=== PATIENT | female | born 1950 | race Caucasian/White ===

== ENCOUNTER 2017-01-27 18:23 | Emergency (ER) | payer BC, MEDICARE, OTHER ==
[~2017-01-27] VITALS: Ht 149.9 cm; Wt 61.9 kg
[~2017-01-27 18:23] MED LIST: LEXA20TA PO; LIPI10TA PO; ZOLP10TA3 PO
[2017-01-27 18:39] VITALS: BP 213/96; PULSE 70; RESP 16; TEMP 98.9; O2SAT 99
[2017-01-27] MEDS ORDERED: AMBI10TA PO (18:47)
[2017-01-27] MEDS ORDERED: LEXA10TA PO (18:47)
[2017-01-27] MEDS ORDERED: LIVA4TAB PO (18:47)
--- NOTE | 2017-01-27 18:54 | PD ---
HPI Chief Complaint: Musculoskeletal Complaint Time Seen by Provider: 18:55 Travel History International Travel<30 days: No Contact w/Intl Traveler<30days: No Traveled to known affect area: No History of Present Illness HPI 66-year-old white female complaining of right shoulder pain and right forearm pain after a mechanical fall 45 minutes ago. She has limited range of motion of her right shoulder and mild pain with rest. She is unable to adduct her arm more than 90 off of the body or perform a shoulder shrug. Her forearm pain is located on her lateral forearm with palpation. She has limited range of motion of her wrists, elbows, and forearms. She denies loss of consciousness, dizziness , chest pain, shortness of breath or any other concerns today. PFSH Past Medical History Anxiety: Yes Depression: Yes Cancer: No Cardiovascular Problems: No Diabetes: No Diminished Hearing: No Endocrine: No Glaucoma: Yes Genitourinary: No Hepatitis: No Hiatal Hernia: No Hypertension: No Immune Disorder: No Musculoskeletal: No Neurologic: No Psychiatric: Yes (DEPRESSION/ ANXIETY) Reproductive: No Respiratory: No Immunizations Current: Yes Thyroid Disease: No Tetanus Vaccination: < 5 Years Influenza Vaccination: No ?: Not Menopausal: Yes Tubal Ligation: Yes Past Surgical History Abdominal Surgery: Yes (APPENDECTOMY) AICD: No Appendectomy: Yes Cardiac Surgery: No Ear Surgery: No Endocrine Surgery: No Eye Surgery: Yes (RETINA REATTACH. RIGHT/ CATARACT EXTR. RIGHT) Genitourinary Surgery: No Gynecologic Surgery: Yes (TUBAL LIGATION; TAHBSO) Hysterectomy: Yes Joint Replacement: No Oral Surgery: No Pacemaker: No Thoracic Surgery: No Other Surgery: Yes Social History Alcohol Use: Yes (WINE FEW TIMES A WEEK) Tobacco Use: No Substance Use: No Allergies-Medications (Allergen,Severity, Reaction): Coded Allergies: No Known Allergies (Verified , 01/27/17) Reported Meds & Prescriptions Reported Meds & Active Scripts Active Reported Ambien (Zolpidem Tartrate) 10 Mg Tab 10 Mg PO HS PRN Lexapro (Escitalopram Oxalate) 10 Mg Tab 10 Mg PO DAILY Livalo (Pitavastatin) 4 Mg Tab 4 Mg PO DAILY Physical Exam Narrative 66-year-old female well-developed well-nourished with . SKIN: Focused skin assessment warm/dry. No ecchymosis or erythema. Skin intact HEAD: Normocephalic. EYES: No scleral icterus. No injection or drainage. NECK: Supple, trachea midline. No JVD or lymphadenopathy. CARDIOVASCULAR: Regular rate and rhythm without murmurs, gallops, or rubs. RESPIRATORY: Breath sounds equal bilaterally. No accessory muscle use. MUSCULOSKELETAL: No cyanosis, or edema. Right shoulder: Active and passive range of motion demonstrates pain in all directions but no crepitus, popping, or change in pain noted. No tenting of the skin, edema or ecchymosis. Mild tenderness to palpation in the lateral superior portion of the deltoid. No joint space tenderness to palpation. Elbow and forearm: mild TTP to lateral forearm without edema, ecchymosis. full range of motion present in forearm to fingers Right forearm and elbow: Active and passive range of motion without pain or limits. Mild tenderness to palpation to lateral aspect of her forearm. No crepitus. BACK: Nontender without obvious deformity. No CVA tenderness. Data Data Last Documented VS Vital Signs Date Time Temp Pulse Resp B/P (MAP) Pulse Ox O2 Delivery O2 Flow Rate FiO2 01/27/17 18:39 98.9 70 16 213/96 (135) 99 Orders Orders Shoulder, Complete (>2vws) (01/27/17 ) Elbow, Complete (4 Vws) (01/27/17 ) [facility] Medical Decision Making Medical Screen Exam Complete: Yes Emergency Medical Condition: Yes Differential Diagnosis Right shoulder: Fracture versus tendon injury versus muscle strain Right forearm: Fracture versus tendon injury versus muscle strain Narrative Course 66-year-old white female complaining of right shoulder and right forearm pain after a mechanical fall today. She states that she has mild shoulder pain with rest that increases with motion. Forearm pain is tender to palpation in lateral aspect. She denies numbness or tingling, or swelling of her arm. Denies clicks, pops, crepitus. PE revealed minimal pain to palpation to lateral forearm, increased pain with range of motion of shoulder. Suspect ligamental injury but pt will follow up outpatient. Shoulder, elbow xray- no gross fractures I advised pt that she could take OTC motrin per package instructions, heat or ice. Diagnosis Primary Impression: Right shoulder injury Qualified Codes: S49.91XA - Unspecified injury of right shoulder and upper arm , initial encounter Additional Impression: Forearm injury Qualified Codes: S59.911A - Unspecified injury of right forearm, initial encounter Patient Instructions: General Instructions, Shoulder Pain (ED) Additional Instructions: Follow-up with her primary care physician and orthopedics doctor for further treatment and evaluation. Recommend using Tylenol and Motrin as directed per package instructions for pain control. Shoulder pain persists or worsens return to the emergency department for further evaluation and treatment. Disposition: 01 DISCHARGE HOME Condition: Stable Rox Ramirez Jan 27, 2017 18:54
--- NOTE | 2017-01-27 19:41 | RADRPT ---
EXAM DATE/TIME: 01/27/2017 18:56 [facility] COMPARISON: No previous studies available for comparison. INDICATIONS : Right shoulder pain. MEDICAL HISTORY : None. SURGICAL HISTORY : None. ENCOUNTER: Initial ACUITY: 1 day PAIN SCORE: 6/10 LOCATION: Right shoulder FINDINGS: Multiple view examination of the right shoulder demonstrates no evidence of fracture or dislocation. The glenohumeral and acromioclavicular joints are maintained. There is normal range of motion betwe en internal and external rotation. Bony mineralization is normal. CONCLUSION: Negative exam. Joseluis Page MD on January 27, 2017 at 19:39 Board Certified Radiologist. This report was verified electronically.
--- NOTE | 2017-01-27 19:46 | RADRPT ---
EXAM DATE/TIME: 01/27/2017 19:06 [facility] COMPARISON: No previous studies available for comparison. INDICATIONS : Right elbow pain. MEDICAL HISTORY : None. SURGICAL HISTORY : None. ENCOUNTER: Initial ACUITY: 1 day PAIN SCORE: 4/10 LOCATION: Right elbow. FINDINGS: Multiple view examination of the right elbow demonstrates no soft tissue swelling, joint effusion, or fracture. The osseous structures are in normal alignment. Bony mineralization is normal. CONCLUSION: Negative exam. Joseluis Page MD on January 27, 2017 at 19:45 Board Certified Radiologist. This report was verified electronically.
== END 2017-01-27 19:59 | disposition home or self-care (01) ==
LOC: PHEFT 18:23
DX: S49.91XA Unspecified injury of right shoulder and upper arm, initial encounter (principal); S59.911A Unspecified injury of right forearm, initial encounter; W01.0XXA Fall on same level from slipping, tripping and stumbling without subsequent striking against object, initial encounter; H40.9 Unspecified glaucoma
CPT/HCPCS: 73030; 73080; 99283